=== PATIENT | male | born 1990 | race American Indian/Alaskan Native ===

== ENCOUNTER 2021-07-25 23:41 | Emergency (ER) | payer SELFPAY ==
[2021-07-26] MEDS ORDERED: PANTOPRAZOLE 40 MG INJ IV ONE (00:05)
[2021-07-26] MEDS ORDERED: ONDANSETRON 4 MG/2 ML INJ IV ONE (00:05)
[2021-07-26] MEDS ORDERED: SODIUM CHLORIDE 0.9% 1000 ML 1,000 ML IV ONE (00:05)
[2021-07-26] MEDS ORDERED: KETOROLAC 30 MG/1 ML INJ IV ONE (00:08)
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
[2021-07-26 00:54] LABS: Hematocrit 42.9 % (35.5-45.6); Hemoglobin 13.7 gm/dl (11.8-15.2); Mean Corpuscular HGB Conc 32 % (32-34); Mean Corpuscular Volume 76 fl (84-94); Platelet Count 303 K/mm3 (140-440); Red Blood Count 5.63 M/mm3 (3.65-5.03); Red Cell Distribution Width 17.3 % (13.2-15.2)
[2021-07-26 01:14] LABS: Alanine Aminotransferase 17 units/L (7-56); Albumin 4.9 g/dL (3.9-5); BUN/Creatinine Ratio 16; Blood Urea Nitrogen 13 mg/dL (9-20); Calcium 9.5 mg/dL (8.4-10.2); Hemolysis Index 1
[2021-07-26 01:53] LABS: Anisocytosis 1+; Basophils % (Manual) 0 % (0.0-1.8); Eosinophils % (Manual) 0 % (0.0-4.3); Total Cells Counted 100
[2021-07-26 01:54] LABS: Platelet Estimate Consistent w Auto
[2021-07-26 04:46] VITALS: BP 119/56
--- NOTE | 2021-07-28 15:12 | XRay Report ---
CHEST 1 VIEW INDICATION / CLINICAL INFORMATION: dyspnea. COMPARISON: None available. FINDINGS: SUPPORT DEVICES: None. HEART / MEDIASTINUM: No significant abnormality. LUNGS / PLEURA: No significant pulmonary or pleural abnormality. No pneumothorax. ADDITIONAL FINDINGS: No significant additional findings. IMPRESSION: 1. No active cardiopulmonary disease. Signer Name: Rudi Santana II, MD Signed: 07/26/2021 1:53 AM Workstation Name: [id number]
--- NOTE | 2021-07-29 08:27 | Cat Scan Report ---
CT ABDOMEN AND PELVIS WITH CONTRAST INDICATION / CLINICAL INFORMATION: abdominal pain leukocytosis. TECHNIQUE: Axial CT images were obtained through the abdomen and pelvis after 100 cc Omni 300 IV cont rast. All CT scans at this location are performed using CT dose reduction for ALARA by means of auto mated exposure control. COMPARISON: None available. FINDINGS: LOWER CHEST: No significant abnormality of the imaged chest. LIVER: No significant abnormality. GALLBLADDER: No significant abnormality. BILE DUCTS: No significant abnormality. SPLEEN: No significant abnormality. PANCREAS: No significant abnormality. ADRENALS: No significant abnormality. RIGHT KIDNEY / URETER: No significant abnormality. LEFT KIDNEY / URETER: No significant abnormality. STOMACH / DUODENUM / SMALL BOWEL: Stomach demonstrates no significant abnormality. No distinct bowel wall thickening or inflammatory changes within the mesentery or involving small bowel. COLON: No significant abnormality. APPENDIX: Not clearly identified. No obvious inflammatory changes region of the cecum. PERITONEUM: No free air or free fluid are present within the abdomen or pelvis. LYMPH NODES: No significant adenopathy. AORTA / ARTERIES: No significant abnormality. IVC / VEINS: No significant abnormality. URINARY BLADDER: No significant abnormality. REPRODUCTIVE ORGANS: No significant abnormality. ADDITIONAL ABDOMINAL/PELVIC FINDINGS: None. SKELETAL SYSTEM: No significant abnormality. IMPRESSION: 1. Appendix not clearly identified. No obvious inflammatory changes in the region of the cecum. No ot her acute findings suggested within abdomen or pelvis. Signer Name: Rudi Santana II, MD Signed: 07/26/2021 1:57 AM Workstation Name: [id number]
== END 2021-07-26 04:25 | disposition home or self-care (01) ==
LOC: ED 23:41
DX: B34.9 Viral infection, unspecified (principal); E86.0 Dehydration; R10.9 Unspecified abdominal pain
CPT/HCPCS: 36415; 71045; 74177; 80053; 83690; 85007; 85025; 96361; 96374; 96375; 99284; C9113; J1885; J2405; J7030; Q9967; Q0162

== ENCOUNTER 2021-12-06 22:35 | Emergency (ER) | payer SELFPAY ==
[2021-12-06] MEDS ORDERED: oxyCODONE /ACETAMINOPHEN 5-325MG TAB PO ONE (23:06)
--- NOTE | 2021-12-07 | XRay Report ---
LEFT WRIST 4 VIEW(S) INDICATION / CLINICAL INFORMATION: left wrist injury COMPARISON: None available. FINDINGS: No fracture, dislocation, or significant soft tissue abnormality is demonstrated. No radiopaque forei gn bodies are identified. IMPRESSION: 1. No acute findings. Signer Name: Rudi Santana II, MD Signed: 12/06/2021 11:56 PM Workstation Name: [id number]
[2021-12-07 01:09] VITALS: BP 141/78
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
== END 2021-12-07 03:02 | disposition home or self-care (01) ==
LOC: ED 22:35
DX: S60.212A Contusion of left wrist, initial encounter (principal); W22.8XXA Striking against or struck by other objects, initial encounter; Y93.89 Activity, other specified; Y92.89 Other specified places as the place of occurrence of the external cause; Y99.8 Other external cause status
CPT/HCPCS: 99284